=== PATIENT | male | born 1950 | race African-American/Black ===

== ENCOUNTER → 2018-10-31 | Outpatient (CLI) | payer MEDICARE, BC ==
[~2018-10-31] MED LIST: ALTACE10 MG PO; ASPIR 8181 MG PO; EFFIENT10 MG PO; LOPRESSOR25 PO; MATZIM LA360 MG PO; METFORMIN HCL500 MG PO; NEXIUM40 MG PO; NITROGLYCERIN0.4 MG SUBLING; PLAVIX 75 MG TA75 M1 PO; PRAVACHOL40 MG PO
--- NOTE | 2018-10-31 17:19 | CARDNUC ---
[place] [address] CARDIAC NUCLEAR IMAGING REPORT Name: DUNG DOMINGUEZ Room: [facility]#: [id number] Admission: 10/31/18 Attend Phys: Radha Simon Discharge: Date of : 46 Date of Service: 10/31/18 1719 Report #: [id number] THIS REPORT FOR: //name// APPROVED REPORT Imaging Protocol: Rest Tc-99m/Stress Tc-99m 1 day Study performed: 10/31/2018 08:00:00 Indication: Chest pain Patient Location: Out-Patient Stress Tech: Marilyn Chino Stress Nurse: Nakia Barclay RN NM Tech:ALISSA Fletcher Ht: 5 ft 10 in Wt: 198 lbs BSA: 2.08 m2 BMI: 28.40 Medical History Medical History: cad, hyperlipidemia, hypertension, diabetes Medications: ramipril, effient, matzim la Allergies: nkda Cardiac Risk Factors: age, hyperlipidemia, hypertension, diabetes, family hx Previous Cardiac Procedures: cabg, pci Exercise History: Physically active Resting Data Rest SPECT myocardial perfusion imaging was performed in supine position 30 minutes following the intravenous injection of 10.8 mCi of Tc-99m Sestamibi. Time of rest injection: 809 Date: 10/31/2018 The images were gated to evaluate regional wall motion and calculate left ventricular ejection fraction. Administration Route: IV Administration Site: Right Hand Pharmacologic Stress Pharmacologic stress test was performed by injecting Regadenoson 0.4 mg IV push over 10-15 seconds immediately followed by the intravenous injection of 33.0 mCi of Tc-99m Sestamibi. Time of stress injection: 924 Administration Route: IV Administration Site: Right Hand Gated Stress SPECT was performed 40 [place] [address] CARDIAC NUCLEAR IMAGING REPORT Name: DUNG DOMINGUEZ [facility]: [facility] [place]#: [id number] Admission: 10/31/18 Attend Phys: Radha Simon Discharge: Date of : 46 Date of Service: 10/31/18 1719 Report #: [id number] injection. The images were gated to evaluate regional wall motion and calculate left ventricular ejection fraction. Prone imaging was performed. Stress Test Details Stress Test: Pharmacologic stress testing performed using 0.4 mg of regadenoson per 5 mL given IV over 10 seconds. Reason for pharmacologic stress test: physical limitation. HR Max Heart Rate (APMHR): 150 bpm Resting HR: 66 bpm Target HR (85% APMHR): 127 bpm Max HR Achieved: 87 bpm % of APMHR: 58 Recovery HR: 83 bpm BP Resting BP: 145/83 mmHg Max BP: 179/80 mmHg Recovery BP: 172/81 mmHg ECG Resting ECG: Sinus Rhythm Stress ECG: Sinus Rhythm ST Change: None Arrhythmia: None Recovery ECG: Sinus Rhythm Recovery ST Change: None Recovery Arrhythmia: None Clinical Reason for Termination: Fatigue, Completed protocol The patient tolerated Lexiscan infusion without significant symptoms. Nurse Comments pt states that his left knee was hurting and that he is getting a knee replacement Stress ECG Conclusion The baseline 12-lead EKG shows sinus rhythm without significant ST or T wave abnormality. EKGs obtained during and post Lexiscan infusion show sinus rhythm with no significant ST or T wave changes when compared baseline. There were no stress-induced arrhythmias. Study Quality Study: [place] [address] CARDIAC NUCLEAR IMAGING REPORT Name: DUNG DOMINGUEZ Room: [facility]#: [id number] Admission: 10/31/18 Attend Phys: Radha Simon Discharge: Date of : 46 Date of Service: 10/31/18 1719 Report #: [id number] Artifact: Mild Diaphragmatic artifact Study Data At rest, the left ventricular ejection fraction was 59%.. Post stress, the left ventricular ejection was 69%.. TID = 0.98. Perfusion Perfusion images obtained in the supine position at rest and post Lexiscan stress show a moderate size mild intensity involving the basal to mid inferior wall that resolves with the most part with post stress prone imaging suggesting diaphragmatic attenuation artifact. No other significant fixed or reversible defects were identified. Wall Motion There is a septal wall motion abnormality noted with prior bypass procedure. Global LV systolic function is well-preserved. Nuclear Conclusion ECG Findings: negative for ischemia Clinical Findings: negative for ischemia Nuclear Findings: negative for ischemia Exercise Capacity: not assessed Left Ventricular Function: preserved Risk Study: low Myocardial perfusion images show no defect to suggest ischemia. Left ventricular systolic function appears well-preserved on gated studies. This is a low risk study. <Conclusion> The baseline 12-lead EKG shows sinus rhythm without significant ST or T wave abnormality. EKGs obtained during and post Lexiscan infusion show sinus rhythm with no significant ST or T wave changes when compared baseline. There were no stress-induced arrhythmias. <ELECTRONICALLY SIGNED> By: Ruddy Forrester MD, FACC 10/31/18 1719 18 18 Ruddy Forrester MD, FACC /INF
== END ==
LOC: M.NUC 05-07 16:48
DX: I25.118 Atherosclerotic heart disease of native coronary artery with other forms of angina pectoris (principal); Z95.1 Presence of aortocoronary bypass graft; Z98.61 Coronary angioplasty status

== ENCOUNTER → 2019-11-06 | Outpatient (CLI) | payer MEDICARE, BC ==
--- NOTE | 2019-11-06 12:04 | CARDNUC ---
[place] [address] CARDIAC NUCLEAR IMAGING REPORT Name: DUNG DOMINGUEZ Room: [facility]#: [id number] Admission: 11/06/19 Attend Phys: Radha Simon Discharge: Date of : 46 Date of Service: 11/06/19 1202 Report #: [id number] THIS REPORT FOR: cc: Harman Mayo MD, David A. MD [place], Michael J. MD [facility] ~ APPROVED REPORT Imaging Protocol: Rest Tc-99m/Stress Tc-99m 1 day Study performed: 11/06/2019 09:34:53 Indication: CAD s/p PCI Patient Location: Out-Patient Stress Tech: Shanel Brown Stress Nurse: Nakia Barclay RN NM Tech:ALISSA Fletcher Ht: 5 ft 10 in Wt: 191 lbs BSA: 2.05 m2 BMI: 27.40 Medical History Medical History: CAD s/p CABG, CAD s/p MT, CAD s/p stent, Diabetes, Former Smoker, HTN, Hyperlipidemia, CAD s/p MT Medications: asa-81, diltiazem, pravastatin. ramipril Allergies: No known drug allergies Cardiac Risk Factors: Diabetes (non-insulin), FHX of CAD, HTN, Hyperlipidemia, Tobacco History (Former) Previous Cardiac Procedures: CABG, PCI, Myocardial infarction Exercise History: Physically active Resting Data Rest SPECT myocardial perfusion imaging was performed in supine position 30 minutes following the intravenous injection of 10.1 mCi of Tc-99m Sestamibi. Time of rest injection: 08 Date: 11/06/2019 The images were gated to evaluate regional wall motion and calculate left ventricular ejection fraction. Administration Route: IV Administration Site: Right Hand Pharmacologic Stress Pharmacologic stress test was performed by injecting Regadenoson 0.4 mg IV push over 10-15 seconds immediately [place] [address] CARDIAC NUCLEAR IMAGING REPORT Name: TATIANAISABELLE VALENCIAROCHELLE ALMANZA [facility] [id number] Admission: 11/06/19 Attend Phys: Radha Simon Discharge: Date of : 46 Date of Service: 11/06/19 1202 Report #: [id number] injection of 32.2 mCi of Tc-99m Sestamibi. Time of stress injection: 924 Date: 11/06/2019 Administration Route: IV Administration Site: Right Hand Gated Stress SPECT was performed 40 minutes after stress injection. The images were gated to evaluate regional wall motion and calculate left ventricular ejection fraction. Prone imaging was performed. Stress Test Details Stress Test: Pharmacologic stress testing performed using 0.4 mg of regadenoson per 5 mL given IV over 10 seconds. Reason for pharmacologic stress test: physical limitation. HR Max Heart Rate (APMHR): 149 bpm Resting HR: 69 bpm Target HR (85% APMHR): 126 bpm Max HR Achieved: 92 bpm % of APMHR: 61 Recovery HR: 74 bpm BP Resting BP: 150/67 mmHg Max BP: 192/70 mmHg Recovery BP: 149/64 mmHg ECG Resting ECG: Sinus Rhythm Stress ECG: Sinus Rhythm ST Change: None Arrhythmia: None Recovery ECG: Sinus Rhythm Recovery ST Change: None Recovery Arrhythmia: None Clinical Reason for Termination: Completed protocol Exercise duration: 0 min sec Exercise capacity: 1 METs The patient tolerated Lexiscan infusion without significant cardiac symptoms. Nurse Comments pt has bad knee and is unable to walk on treadmill Stress ECG Conclusion The baseline 12-lead EKG shows sinus rhythm without significant [place] [address] CARDIAC NUCLEAR IMAGING REPORT Name: ISABELLE DOMINGUEZROCHELLE ALMANZA Room: [facility]#: [id number] Admission: 11/06/19 Attend Phys: Radha Simon Discharge: Date of : 46 Date of Service: 11/06/19 1202 Report #: [id number] segment or T wave abnormality. EKGs obtained during and post Lexiscan infusion show sinus rhythm with no significant ST or T wave changes when compared to baseline. There were no stress-induced arrhythmias. Study Quality Study: Good Artifact: Mild Diaphragmatic artifact Study Data At rest, the left ventricular ejection fraction was 62%.. Post stress, the left ventricular ejection was 58%.. TID = 0.99. Perfusion Perfusion images show a moderate size moderate intensity defect involving the basal to distal inferior wall that appears more pronounced on stress than resting images. Review of the raw data show significant diaphragmatic attenuation artifact. There were no reversible defects. Wall Motion Global LV systolic function is preserved. There is a septal wall motion abnormality noted with prior bypass procedure. Nuclear Conclusion ECG Findings: negative for ischemia Clinical Findings: negative for ischemia Nuclear Findings: negative for ischemia Exercise Capacity: not assessed Left Ventricular Function: preserved Risk Study: low Perfusion study show no defects to suggest ischemia. Inferior wall defect is likely due to diaphragmatic attenuation artifact. Global LV systolic function is preserved. This is a low risk study. <Conclusion> The baseline 12-lead EKG shows sinus rhythm without significant ST segment or T wave abnormality. EKGs obtained during and post Lexiscan infusion show sinus rhythm with no significant ST or T wave changes when compared to baseline. There were no stress-induced arrhythmias. <ELECTRONICALLY SIGNED> By: Ruddy Forrester MD, FACC 11/06/19 1202 120 120 Ruddy Forrester MD, FACC /INF
== END ==
LOC: M.NUC 05-02 08:49
DX: I25.810 Atherosclerosis of coronary artery bypass graft(s) without angina pectoris (principal); Z95.5 Presence of coronary angioplasty implant and graft; Z95.1 Presence of aortocoronary bypass graft